=== PATIENT | female | born 1950 | race Two or more races ===

== ENCOUNTER 2018-06-16 11:06 | Outpatient (CLI) | payer OTHER ==
[~2018-06-16 11:06] MED LIST: ACID CONTROL150 MG; DIPHENOXYLATE-1 EACH
== END 2018-06-16 11:13 | disposition home or self-care (01) ==
LOC: RAD 11:06
DX: J45.909 Unspecified asthma, uncomplicated (principal)

== ENCOUNTER 2018-10-28 11:01 | Outpatient (CLI) | payer OTHER | END 2018-10-28 11:06 | disposition home or self-care (01) | LOC: NUCLEAR 11:01 | DX: I87.2 Venous insufficiency (chronic) (peripheral) (principal); I73.9 Peripheral vascular disease, unspecified; I79.1 Aortitis in diseases classified elsewhere; I79.8 Other disorders of arteries, arterioles and capillaries in diseases classified elsewhere ==

== ENCOUNTER 2018-10-29 10:00 | Outpatient (CLI) | payer OTHER | END 2018-10-29 10:02 | disposition home or self-care (01) | LOC: NUCLEAR 10:00 | DX: I73.9 Peripheral vascular disease, unspecified (principal); I79.1 Aortitis in diseases classified elsewhere; I79.8 Other disorders of arteries, arterioles and capillaries in diseases classified elsewhere ==

== ENCOUNTER → 2019-04-23 | Outpatient (CLI) | payer OTHER | END | disposition home or self-care (01) | LOC: MAMO-SONO 08:05 | DX: I73.89 Other specified peripheral vascular diseases (principal); D17.1 Benign lipomatous neoplasm of skin and subcutaneous tissue of trunk; I10 Essential (primary) hypertension; M54.5 Low back pain; Z01.810 Encounter for preprocedural cardiovascular examination; E03.8 Other specified hypothyroidism; E78.49 Other hyperlipidemia; E78.89 Other lipoprotein metabolism disorders; E78.3 Hyperchylomicronemia; E55.9 Vitamin D deficiency, unspecified; Z12.13 Encounter for screening for malignant neoplasm of small intestine; Z12.31 Encounter for screening mammogram for malignant neoplasm of breast ==

== ENCOUNTER 2019-05-21 09:37 | Outpatient (CLI) | payer OTHER | END 2019-05-21 12:07 | disposition home or self-care (01) | LOC: NUCLEAR 09:37 | DX: M54.5 Low back pain (principal); I73.9 Peripheral vascular disease, unspecified; D17.1 Benign lipomatous neoplasm of skin and subcutaneous tissue of trunk; I10 Essential (primary) hypertension; Z01.810 Encounter for preprocedural cardiovascular examination; E03.8 Other specified hypothyroidism; E78.89 Other lipoprotein metabolism disorders; E78.2 Mixed hyperlipidemia; E78.3 Hyperchylomicronemia; E55.9 Vitamin D deficiency, unspecified; F32.0 Major depressive disorder, single episode, mild ==

== ENCOUNTER 2019-10-08 09:02 | Outpatient (CLI) | payer OTHER | END 2019-10-08 09:04 | disposition home or self-care (01) | LOC: NUCLEAR 09:02 | PROVIDERS: ATTEND Internal Medicine | DX: I73.89 Other specified peripheral vascular diseases (principal); D17.1 Benign lipomatous neoplasm of skin and subcutaneous tissue of trunk; I10 Essential (primary) hypertension; M54.5 Low back pain; Z01.810 Encounter for preprocedural cardiovascular examination; E03.8 Other specified hypothyroidism; E78.89 Other lipoprotein metabolism disorders; E78.2 Mixed hyperlipidemia; E78.3 Hyperchylomicronemia; E55.9 Vitamin D deficiency, unspecified; F32.0 Major depressive disorder, single episode, mild ==

== ENCOUNTER → 2020-05-24 | Outpatient (CLI) | payer OTHER | END | disposition home or self-care (01) | LOC: RAD 08:53 | PROVIDERS: ATTEND Internal Medicine | DX: M77.32 Calcaneal spur, left foot (principal); I10 Essential (primary) hypertension; M54.5 Low back pain; E03.8 Other specified hypothyroidism; D17.1 Benign lipomatous neoplasm of skin and subcutaneous tissue of trunk; I73.89 Other specified peripheral vascular diseases; E78.89 Other lipoprotein metabolism disorders; E78.49 Other hyperlipidemia; E78.3 Hyperchylomicronemia; E55.9 Vitamin D deficiency, unspecified; R01.2 Other cardiac sounds; Z13.820 Encounter for screening for osteoporosis ==

== ENCOUNTER 2020-09-07 09:43 | Outpatient (CLI) | payer OTHER | END 2020-09-07 09:51 | disposition home or self-care (01) | LOC: SONOGRAMA 09:43 → MAMO-SONO 09:45 → SONOGRAMA 09:51 | PROVIDERS: ATTEND Internal Medicine | DX: M25.511 Pain in right shoulder (principal); M54.5 Low back pain; I73.89 Other specified peripheral vascular diseases; D17.1 Benign lipomatous neoplasm of skin and subcutaneous tissue of trunk; I10 Essential (primary) hypertension; E03.8 Other specified hypothyroidism; E78.89 Other lipoprotein metabolism disorders; E78.5 Hyperlipidemia, unspecified; E78.2 Mixed hyperlipidemia; E78.3 Hyperchylomicronemia; E55.9 Vitamin D deficiency, unspecified; R01.2 Other cardiac sounds; L20.89 Other atopic dermatitis ==

== ENCOUNTER 2020-11-28 07:43 | Outpatient (CLI) | payer OTHER | END 2020-11-28 07:50 | disposition home or self-care (01) | LOC: MAMO-SONO 07:43 | PROVIDERS: ATTEND Internal Medicine | DX: N64.59 Other signs and symptoms in breast (principal); Z12.31 Encounter for screening mammogram for malignant neoplasm of breast; I73.89 Other specified peripheral vascular diseases; I10 Essential (primary) hypertension; M54.5 Low back pain; E78.89 Other lipoprotein metabolism disorders; E55.9 Vitamin D deficiency, unspecified; M25.511 Pain in right shoulder; Z13.820 Encounter for screening for osteoporosis; Z13.5 Encounter for screening for eye and ear disorders; Z12.13 Encounter for screening for malignant neoplasm of small intestine ==

== ENCOUNTER 2021-05-03 08:00 | Outpatient (CLI) | payer OTHER | END 2021-05-03 08:30 | disposition home or self-care (01) | LOC: PPH VACUNA 08:00 | PROVIDERS: ATTEND Emergency Medicine Pediatric Emergency Medicine | DX: Z23 Encounter for immunization (principal) ==

== ENCOUNTER 2021-08-17 07:51 | Outpatient (CLI) | payer OTHER | END 2021-08-17 07:52 | disposition home or self-care (01) | LOC: NUCLEAR 07:51 | PROVIDERS: ATTEND Internal Medicine | DX: K66.8 Other specified disorders of peritoneum (principal) | CPT/HCPCS: 78812; A9552 ==

== ENCOUNTER 2021-12-13 09:32 | Outpatient (CLI) | payer OTHER ==
[2021-12-13] MEDS ORDERED: PROBIOTIC250 MG PO (10:11)
[2021-12-13] MEDS ORDERED: DICLOFENAC SODI25 MG PO (10:13)
== END 2021-12-13 09:45 | disposition home or self-care (01) ==
LOC: PPH VACUNA 09:32
PROVIDERS: ATTEND Emergency Medicine Pediatric Emergency Medicine
DX: Z23 Encounter for immunization (principal)

== ENCOUNTER 2021-12-13 09:54 | Emergency (ER) | payer OTHER ==
[~2021-12-13] VITALS: Ht 162.6 cm; Wt 73.9 kg
[2021-12-13] MEDS ORDERED: PROBIOTIC250 MG PO (10:11)
[2021-12-13] MEDS ORDERED: DICLOFENAC SODI25 MG PO (10:13)
== END 2021-12-13 11:10 | disposition home or self-care (01) ==
LOC: ER 09:54
DX: R55 Syncope and collapse (principal)

== ENCOUNTER 2022-03-22 07:00 | Inpatient (IN) | payer OTHER ==
[~2022-03-22] VITALS: Ht 152.4 cm; Wt 74.4 kg
[~2022-03-22 07:00] MED LIST changes: +DICLOFENAC SODI25 MG PO; +PROBIOTIC250 MG PO
[2022-03-29] MEDS ORDERED: ELIQUIS2.5 MG PO (17:33)
[2022-03-29] MEDS ORDERED: CIPROFLOXACIN500 MG PO (17:33)
[2022-03-29] MEDS ORDERED: PERCOCET 5-3251 EACH PO (17:33)
== END 2022-03-29 22:10 | disposition home or self-care (01) | DRG 470 ==
LOC: EDSTATUS 07:00 → ADM 07:00 → MEDI 03-27 05:15 → O/R 03-27 05:15 → SURH 03-27 07:00 → MEDI 03-27 16:27 → SURH 03-27 20:15 → MEDI 03-28 16:00
PROVIDERS: ADMIT Orthopaedic Surgery; ATTEND Orthopaedic Surgery
PROC: 0SRC0J9 Replacement of Right Knee Joint with Synthetic Substitute, Cemented, Open Approach (ICD-10-PCS; principal; 2022-03-27 20:15)
DX: M17.11 Unilateral primary osteoarthritis, right knee (principal); D62 Acute posthemorrhagic anemia; M22.11 Recurrent subluxation of patella, right knee; I10 Essential (primary) hypertension; Z96.651 Presence of right artificial knee joint; Z20.822 Contact with and (suspected) exposure to COVID-19

== ENCOUNTER 2022-04-06 10:54 | Emergency (ER) | payer OTHER ==
[~2022-04-06] VITALS: Ht 162.6 cm; Wt 74.4 kg
[~2022-04-06 10:54] MED LIST changes: +CIPROFLOXACIN500 MG PO; +ELIQUIS2.5 MG PO; +PERCOCET 5-3251 EACH PO
== END 2022-04-06 14:18 | disposition home or self-care (01) ==
LOC: ER 10:54
DX: R55 Syncope and collapse (principal); Z88.6 Allergy status to analgesic agent; Z88.0 Allergy status to penicillin; Z91.018 Allergy to other foods; D64.9 Anemia, unspecified

== ENCOUNTER 2022-06-28 07:03 | Outpatient (CLI) | payer OTHER ==
[~2022-06-28 07:03] MED LIST changes: +DICYCLOMINE HCL20 MG PO
== END 2022-06-28 07:08 | disposition home or self-care (01) ==
LOC: RAD 07:03
PROVIDERS: ATTEND Orthopaedic Surgery
DX: M17.12 Unilateral primary osteoarthritis, left knee (principal)

== ENCOUNTER 2022-07-11 07:07 | Outpatient (CLI) | payer OTHER | END 2022-07-11 07:19 | disposition home or self-care (01) | LOC: MAMO-SONO 07:07 | PROVIDERS: ATTEND Internal Medicine | DX: N60.12 Diffuse cystic mastopathy of left breast (principal); N60.11 Diffuse cystic mastopathy of right breast ==

== ENCOUNTER 2022-11-23 07:24 | Outpatient (CLI) | payer OTHER | END 2022-11-23 07:32 | disposition home or self-care (01) | LOC: NUCLEAR 07:24 | PROVIDERS: ATTEND Internal Medicine | DX: I25.118 Atherosclerotic heart disease of native coronary artery with other forms of angina pectoris (principal); I11.9 Hypertensive heart disease without heart failure; R07.9 Chest pain, unspecified | CPT/HCPCS: 78452; 93017; A9500 ==

== ENCOUNTER 2023-06-20 13:24 | Inpatient (IN) | payer OTHER ==
[~2023-06-20] VITALS: Ht 162.6 cm; Wt 77.1 kg
[2023-06-20 08:49] LABS: URINE APPEARANCE Clear; URINE BILIRRUBIN Negative (NEGATIVE); URINE BLOOD Negative; URINE COLOR Yellow; URINE GLUCOSE Negative (NEGATIVE); URINE LEUKOCYTE Trace; URINE NITRATE Negative; URINE PROTEIN Negative (NEGATIVE); URINE UROBILINOGEN 0.2 E.U./dl
[2023-06-20 08:53] LABS: URINE BACTERIA 70.5 uL (0.0-1933); URINE EPITHELIAL CELLS 9.7 uL (0.0-38.8); URINE RBC 6.4 uL (0.0-20.8); URINE WBC 8.8 uL (0.0-23.2)
[2023-06-20 08:54] LABS: HEMATOCRIT 37.9 % (36.0-45.00); HEMOGLOBIN 12.6 g/dL (12.0-15.00); MEAN CELL VOLUME 78.2 fL (80.00-100.00); MEAN CORPUSCULAR HGB CONC 33.3 g/dl (32.0-36.0); PLATELET COUNT 244 K/uL (150-450); RED BLOOD COUNT 4.84 M/uL (4.00-6.00); RED CELL DISTRIBUTION WIDTH 15.5 % (11.5-14.5)
[2023-06-20 09:15] LABS: INR 1.03; PARTIAL THROMBOPLASTIN TIME 29.2 SECONDS (22.0-34.0); PROTHROMBIN TIME 10.8 SECONDS (9.0-11.5)
[2023-06-20 09:22] LABS: ALBUMIN 3.8 gm/dL (3.4-5.0); BILIRUBIN TOTAL 0.66 mg/dL (0.3-1.2); CALCIUM 9.8 mg/dL (8.5-10.1); CREATININE SERUM 0.72 mg/dL (0.55-1.02); GFR 79.18; GLOBULINA 3.3 G/DL (2.4-3.5); POTASSIUM 3.95 mEq/L (3.5-5.1); TOTAL PROTEIN 7.1 gm/dL (6.4-8.2)
[~2023-06-20 13:24] MED LIST changes: +AMLODIPINE-OLM1 EAC3 PO; +ZETIA10 MG PO
[2023-06-20] MEDS ORDERED: METOPROLOL SUCC25 MG PO (14:45)
[2023-07-02] MEDS ORDERED: VANCOMYCIN HCL 1,000 MG VIAL IV SCH (06:00)
[2023-07-02] MEDS ORDERED: AMLODIPINE BESY10 MG (08:34)
[2023-07-02] MEDS ORDERED: EZETIMIBE10 MG (08:36)
[2023-07-02] MEDS ORDERED: METOPROLOL SUCC25 MG (08:37)
[2023-07-02] MEDS ORDERED: KETOROLAC TROMETHAMINE 60 MG VIAL IM ONE (09:01)
[2023-07-02] MEDS ORDERED: TRANEXAMIC ACID 100MG/1ML (1000MG) AMPUL IV ONE (09:01)
[2023-07-02] MEDS ORDERED: LIDOCAINE HCL 1%/Epi 20ML VIAL IJ ONE (09:01)
[2023-07-02] MEDS ORDERED: BUPIVACAINE HCL/PF 0.5% 30ML ML ONE (09:01)
[2023-07-02] MEDS ORDERED: VANCOMYCIN HCL 1,000 MG VIAL ONE (09:05)
[2023-07-02] MEDS ORDERED: DEXAMETHASONE SODIUM PHOSPHATE 4 MG/ML VIAL ONE (09:07)
[2023-07-02] MEDS ORDERED: DIPHENHYDRAMINE HCL 50 MG/ML VIAL 1ML ONE (09:07)
[2023-07-02] MEDS ORDERED: OxyCODONE HCL 5 MG TABLET (ROXICODONE) PO PRN (11:00)
[2023-07-02] MEDS ORDERED: ONDANSETRON HCL 2 MG/ML VIAL IV PRN (11:00)
[2023-07-02] MEDS ORDERED: SODIUM CHLORIDE 0.45 % 1,000 ML IV SCH (11:00)
[2023-07-02] MEDS ORDERED: MORPHINE SULFATE 4 MG/ML CARTRIDGE IV PRN (11:00)
[2023-07-02] MEDS ORDERED: ACETAMINOPHEN 500 MG GEL..CAP PO SCH (12:00)
[2023-07-02] MEDS ORDERED: AMLODIPINE BESYLATE 5 MG TABLET PO STA (14:29)
[2023-07-02] MEDS ORDERED: AMLODIPINE BESYLATE 5 MG TABLET PO SCH (14:30)
[2023-07-02] MEDS ORDERED: GABAPENTIN 300 MG CAPSULE PO SCH (17:00)
[2023-07-02] MEDS ORDERED: VANCOMYCIN HCL 1,000 MG in 0.9 % SODIUM CHLORIDE 250 ML IV SCH (21:00)
[2023-07-02] MEDS ORDERED: METOPROLOL TARTRATE 25 MG TABLET PO SCH (21:00)
[2023-07-03 06:27] LABS: HEMATOCRIT 34.7 % (36.0-45.00); HEMOGLOBIN 11.7 g/dL (12.0-15.00); MEAN CORPUSCULAR HGB CONC 33.7 g/dl (32.0-36.0); PLATELET COUNT 216 K/uL (150-450); RED BLOOD COUNT 4.51 M/uL (4.00-6.00); RED CELL DISTRIBUTION WIDTH 15.4 % (11.5-14.5)
[2023-07-03] MEDS ORDERED: APIXABAN 2.5 MG TABLET PO SCH (09:00)
[2023-07-03] MEDS ORDERED: SENNOSIDES 1 TAB TABLET PO SCH (09:00)
[2023-07-03] MEDS ORDERED: CIPRO500 MG PO (09:06)
[2023-07-03] MEDS ORDERED: ELIQUIS2.5 MG PO (09:06)
[2023-07-03] MEDS ORDERED: PERCOCET 5-3251 EACH PO (09:06)
[2023-07-03] MEDS ORDERED: SOD FERRIC GLUC COMPLX/SUCROSE 62.5 MG/5 ML AMPUL IV SCH (15:00)
[2023-07-03] MEDS ORDERED: Cyanocobalamin/Mecobalamin 1 TAB.SL SL SCH (17:00)
[2023-07-03] MEDS ORDERED: VITAMIN B COMPLEX 1 EACH PO SCH (17:00)
[2023-07-03] MEDS ORDERED: APIXABAN 5 MG TABLET PO SCH (21:00)
[2023-07-04 07:06] LABS: HEMATOCRIT 32.5 % (36.0-45.00); HEMOGLOBIN 10.9 g/dL (12.0-15.00); MEAN CELL VOLUME 77.6 fL (80.00-100.00); MEAN CORPUSCULAR HEMOGLOBIN 26.1 pg (27.00-32.0); MEAN CORPUSCULAR HGB CONC 33.7 g/dl (32.0-36.0); PLATELET COUNT 207 K/uL (150-450); RED BLOOD COUNT 4.19 M/uL (4.00-6.00); RED CELL DISTRIBUTION WIDTH 15.5 % (11.5-14.5)
[2023-07-04] MEDS ORDERED: IRON FUM,PS/FOLIC ACID/VITC/B3 1 CAP CAPSULE PO SCH (09:00)
[2023-07-04] MEDS ORDERED: FUROsemide 20 MG/2 ML VIAL IV ONE (12:00)
[2023-07-04] MEDS ORDERED: FUROsemide 20 MG/2 ML VIAL ONE (12:25)
== END 2023-07-04 16:34 | disposition home or self-care (01) | DRG 470 ==
LOC: O/R 07-02 06:00 → SURH 07-02 07:00 → PED 07-02 11:36 → SURH 07-02 13:22 → PED 07-04 16:34
PROVIDERS: ADMIT Orthopaedic Surgery; ATTEND Orthopaedic Surgery
PROC: 0SRD0J9 Replacement of Left Knee Joint with Synthetic Substitute, Cemented, Open Approach (ICD-10-PCS; principal; 2023-07-02 07:00)
DX: M17.12 Unilateral primary osteoarthritis, left knee (principal); D62 Acute posthemorrhagic anemia; M22.12 Recurrent subluxation of patella, left knee; I10 Essential (primary) hypertension; I48.91 Unspecified atrial fibrillation

== ENCOUNTER 2023-10-10 07:05 | Outpatient (CLI) | payer OTHER ==
[~2023-10-10 07:05] MED LIST changes: +AMLODIPINE BESY10 MG; +CIPRO500 MG PO; +EZETIMIBE10 MG; +METOPROLOL SUCC25 MG; +METOPROLOL SUCC25 MG PO; +MOTION SICKNESS25 M1 PO; +PEPCID40 MG PO; +PROTONIX40 MG PO; +ZETIA10 MG; +ZOFRAN4 MG PO
== END 2023-10-10 07:13 | disposition home or self-care (01) ==
LOC: MAMO-SONO 07:05
PROVIDERS: ATTEND Internal Medicine
DX: N60.11 Diffuse cystic mastopathy of right breast (principal); N60.12 Diffuse cystic mastopathy of left breast; Z12.31 Encounter for screening mammogram for malignant neoplasm of breast

== ENCOUNTER 2025-01-08 07:28 | Outpatient (CLI) | payer OTHER | END 2025-01-08 07:37 | disposition home or self-care (01) | LOC: SONOGRAMA 07:28 | PROVIDERS: ATTEND Internal Medicine | DX: E04.1 Nontoxic single thyroid nodule (principal) ==

== ENCOUNTER 2025-02-22 10:26 | Outpatient (CLI) | payer OTHER | END 2025-02-22 10:44 | disposition home or self-care (01) | LOC: MAMO-SONO 10:26 | PROVIDERS: ATTEND Internal Medicine | DX: N64.4 Mastodynia (principal); Z12.31 Encounter for screening mammogram for malignant neoplasm of breast; Z12.39 Encounter for other screening for malignant neoplasm of breast ==